=== PATIENT | male | born 1950 | race Caucasian/White ===

== ENCOUNTER → 2017-04-22 | Outpatient (CLI) | payer OTHER, MEDICARE ==
--- NOTE | 2017-04-22 15:00 | PCVCIMAG ---
APPROVED REPORT Study performed: 04/22/2017 14:12:04 EXAM: Comprehensive 2D, Doppler, and color-flow Echocardiogram Patient Location: Echo lab Status: routine Other Information Study Quality: Adequate Indications Pre-Op Atrial Fibrillation Dyspnea CAD 2D Dimensions LVEF(%): 42.55 (>50%) IVSd: 9.59 (7-11mm) LVDd: 54.01 mm PWd: 9.59 (7-11mm)Ascending Ao: 39.17 (22-36mm) LVDs: 42.59 (25-40mm) Left Atrium: 45.15 (27-40mm) Aortic Root: 36.32 mm LV Single Plane 4CH: 46.76 % LV Single Plane 2CH: 53.38 %Savage's LVEF: 50.07 % Biplane EF: 49.9 % Volumes Left Atrial Volume (Systole) Single Plane 4CH: 142.73 mLSingle Plane 2CH: 127.93 mL LA ESV Index: 58.00 mL/m2 Aortic Valve AoV Peak Levon.: 1.28 m/s AO Peak Gr.: 6.54 mmHgLVOT Max P.58 mmHg LVOT Max V: 0.95 m/s Pulmonary Valve PV Peak Levon.: 0.89 m/sPV Peak Gr.: 3.20 mmHg Tricuspid Valve TR Peak Levon.: 2.50 m/s TR Peak Gr.: 25.07 mmHg Left Ventricle The left ventricle is normal size. There is normal LV segmental wall motion. There is normal left ventricular wall thickness. Left ventricular systolic function is normal. The left ventricular ejection fraction is within the normal range. This study is not technically sufficient to allow evaluation of the LV diastolic function due to atrial fibrillation. Right Ventricle The right ventricle is normal size. The right ventricular systolic function is normal. Atria Left atrium is severely dilated. Right atrium is severely dilated. Aortic Valve The aortic valve is normal in structure. No aortic regurgitation is present. There is no aortic valvular stenosis. Mitral Valve The mitral valve is normal in structure. There is no mitral valve regurgitation noted. No evidence of mitral valve stenosis. Tricuspid Valve The tricuspid valve is normal in structure. Mild tricuspid regurgitation with PAP of 32 mmHg. Pulmonic Valve The pulmonary valve is normal in structure. There is no pulmonic valvular regurgitation. Great Vessels The aortic root is normal in size. The ascending aorta is borderline dilated to 3.9 cm. IVC is normal in size and collapses with >50% inspiration Pericardium There is no pericardial effusion. <Conclusion> The left ventricle is normal size. Left ventricular systolic function is normal. The right ventricle is normal size. Left atrium is severely dilated. Right atrium is severely dilated. There is no aortic valvular stenosis. The mitral valve is normal in structure. Mild tricuspid regurgitation with PAP of 32 mmHg.
--- NOTE | 2017-04-22 17:29 | PCVCIMAG ---
EXAM: BILATERAL CAROTID DUPLEX INDICATION: Carotid Occlusive Disease. FINDINGS: Doppler Measurements (centimeters per second): RIGHT: Peak CCA-78, Peak ECA-92, Diastolic ICA-30, Peak ICA-84, ICA/CCA Ratio-1.1. LEFT: Peak CCA-90, Peak ECA-99, Diastolic ICA-25, Peak ICA-63, ICA/CCA Ratio-0.7. RIGHT CAROTID: The carotid bulb has mild plaque. The proximal internal carotid artery shows <40% stenosis. The common carotid artery shows no significant stenosis. The external carotid artery shows no significant stenosis. LEFT CAROTID: The carotid bulb has mild plaque. The proximal internal carotid artery shows <40% stenosis. The common carotid artery shows no significant stenosis. The external carotid artery shows no significant stenosis. Antegrade flow in both vertebral arteries. IMPRESSION: <40% stenosis of the right internal carotid artery with mild plaque. <40% stenosis of the left internal carotid artery with mild plaque. LOC:[id number]
== END | disposition home or self-care (01) ==
LOC: PCVCIMAG 13:43
PROVIDERS: ATTEND Internal Medicine Cardiovascular Disease
DX: Z01.810 Encounter for preprocedural cardiovascular examination (principal); I65.23 Occlusion and stenosis of bilateral carotid arteries; I07.1 Rheumatic tricuspid insufficiency; I25.10 Atherosclerotic heart disease of native coronary artery without angina pectoris; I48.91 Unspecified atrial fibrillation; I10 Essential (primary) hypertension
CPT/HCPCS: 93306; 93880

== ENCOUNTER → 2018-02-21 | Outpatient (CLI) | payer OTHER, MEDICARE | END | disposition home or self-care (01) | LOC: PCVCCLINIC 11:26 | DX: E78.00 Pure hypercholesterolemia, unspecified (principal); I48.91 Unspecified atrial fibrillation; I25.10 Atherosclerotic heart disease of native coronary artery without angina pectoris; I10 Essential (primary) hypertension | CPT/HCPCS: 36415 ==

== ENCOUNTER → 2019-08-22 | Outpatient (CLI) | payer OTHER, MEDICARE | LOC: PCVCCLINIC 11:00 | PROVIDERS: ATTEND Internal Medicine Cardiovascular Disease | DX: I25.10 Atherosclerotic heart disease of native coronary artery without angina pectoris (principal) | CPT/HCPCS: 36415; 80061 ==

== ENCOUNTER → 2019-08-28 | Outpatient (CLI) | payer OTHER, MEDICARE | END | disposition home or self-care (01) | LOC: PCVCCLINIC 14:30 | PROVIDERS: ATTEND Internal Medicine Cardiovascular Disease | DX: I25.10 Atherosclerotic heart disease of native coronary artery without angina pectoris (principal); I48.91 Unspecified atrial fibrillation; J47.9 Bronchiectasis, uncomplicated; I10 Essential (primary) hypertension; E78.00 Pure hypercholesterolemia, unspecified; M06.9 Rheumatoid arthritis, unspecified; Z79.82 Long term (current) use of aspirin; Z79.899 Other long term (current) drug therapy; Z95.1 Presence of aortocoronary bypass graft; Z88.8 Allergy status to other drugs, medicaments and biological substances | CPT/HCPCS: 36415; 80061 ==